=== PATIENT | female | born 1980 | race Caucasian/White ===

== ENCOUNTER 2018-02-16 16:36 | Emergency (ER) | payer BC, MEDICAID ==
[~2018-02-16] VITALS: Ht 162.6 cm; Wt 57.7 kg
[2018-02-16 16:45] VITALS: BP 116/71
== END 2018-02-16 21:12 | disposition home or self-care (01) ==
LOC: ER 16:37
DX: R42 Dizziness and giddiness (principal); Z88.6 Allergy status to analgesic agent; Z88.8 Allergy status to other drugs, medicaments and biological substances
CPT/HCPCS: 93005; 99283